=== PATIENT | male | born 1990 | race Caucasian/White ===

== ENCOUNTER 2018-07-10 17:09 | Emergency (ER) | payer SELFPAY ==
[~2018-07-10] VITALS: Ht 170.2 cm; Wt 65.9 kg
[~2018-07-10 17:09] MED LIST: CEPHALEXIN500 MG PO; CLEOCIN150 MG PO; NO MEDS; PENICILLN VK500 MG PO; PREDNISONE20 MG OR; PROAIR HFA IN; PROMETHAZINE25 MG OR; ULTRAM50 MG OR; ULTRAM50 MG PO
[2018-07-10 17:55] LABS: HEMOGLOBIN 14.9 g/dl (14.0-18.0); IMMATURE GRANULOCYTES 0.3 % (0.0-5.0); MEAN CELL VOLUME 89.6 fL CALC (80.0-100.0); MEAN CORPUSCULAR HGB 31.8 pG CALC (26.0-32.0); MEAN CORPUSCULAR HGB CONC 35.5 g/L CALC (32.0-36.0); NEUT# 6.95 thou/uL (1.82-7.42); RED BLOOD COUNT 4.69 mill/uL (4.70-6.10); RED CELL DISTRI WIDTH 12.1 % (11.5-15.5)
[2018-07-10 18:07] LABS: ALBUMIN 4.9 g/dL (3.2-5.0); ALKALINE PHOSPHATASE 65 u/l (38-126); ANION GAP 16 (6-22 (CALC)); BILIRUBIN, TOTAL 0.8 mg/dL (0.0-1.4); BUN 16 mg/dL (9-20); BUN/CREATININE RATIO 16 (12-20 (CALC)); CARBON DIOXIDE 26 mmol/l (22-30); CHLORIDE 103 mmol/l (95-108); GFR > 60 ML/MIN (>=60 (CALC)); GFR FOR AFR.AMER. > 60 ML/MIN (>=60 (CALC)); POTASSIUM 3.9 mmol/l (3.5-5.1); SGOT/AST 34 u/l (17-59); SODIUM 141 mmol/l (137-146); TOTAL PROTEIN 7.9 g/dL (6.3-8.2)
[2018-07-10 18:51] LABS: MYOGLOBIN 66 ng/mL (0 - 121)
[2018-07-10 18:58] LABS: URINE BILIRUBIN - DIPSTICK NEGATIVE (NEGATIVE); URINE BLOOD DIPSTICK NEGATIVE (NEGATIVE); URINE CLARITY CLEAR; URINE COLOR YELLOW; URINE GLUCOSE - DIPSTICK NEGATIVE (NEGATIVE); URINE KETONE TRACE mg/dL (NEGATIVE); URINE LEUK ESTERASE NEGATIVE (NEGATIVE); URINE NITRITE - DIPSTICK NEGATIVE (Negative); URINE PROTEIN - DIPSTICK NEGATIVE (NEG-TRACE)
[2018-07-10] MEDS ORDERED: ZOLOFT50 MG PO (19:15)
[2018-07-10 19:27] VITALS: BP 149/97
== END 2018-07-10 19:32 | disposition home or self-care (01) | DRG 880 ==
LOC: ED 17:09
PROVIDERS: Emergency Medicine; Family Medicine
DX: F41.0 Panic disorder [episodic paroxysmal anxiety] (principal); Z87.891 Personal history of nicotine dependence

== ENCOUNTER 2018-11-21 00:43 | Emergency (ER) | payer SELFPAY ==
[~2018-11-21] VITALS: Ht 170.2 cm; Wt 64.0 kg
[~2018-11-21 00:43] MED LIST changes: +ZOLOFT50 MG PO
[2018-11-21 01:17] VITALS: BP 124/88
[2018-11-21] MEDS ORDERED: PERCOCET 5/325M1 TAB PO (01:20)
[2018-11-21] MEDS ORDERED: AMOXICILLIN500 MG PO (01:20)
== END 2018-11-21 01:26 | disposition home or self-care (01) | DRG 159 ==
LOC: ED 00:43
DX: K02.9 Dental caries, unspecified (principal)

== ENCOUNTER 2021-04-19 08:14 | Inpatient (IN) | payer OTHER ==
[~2021-04-19] VITALS: Ht 170.2 cm; Wt 63.6 kg
[~2021-04-19 08:14] MED LIST changes: +AMOXICILLIN500 MG PO; +PERCOCET 5/325M1 TAB PO
--- NOTE | 2021-04-19 08:18 | NUR ---
PT TO ROOM WITH A STEADY GAIT FOR BEDSIDE TRIAGE.
[2021-04-19 08:52] LABS: URINE BLOOD DIPSTICK MODERATE (NEGATIVE); URINE COLOR YELLOW; URINE GLUCOSE - DIPSTICK NEGATIVE (NEGATIVE); URINE KETONE NEGATIVE (NEGATIVE); URINE LEUK ESTERASE NEGATIVE (NEGATIVE); URINE PROTEIN - DIPSTICK 30 mg/dL (NEG-TRACE); URINE SPECIFIC GRAVITY >=1.030; URINE UROBILINOGEN - DIPSTICK 0.2 E.U./dL (0.2)
[2021-04-19 08:54] LABS: HEMATOCRIT 42.8 % (39.0-50.0); HEMOGLOBIN 14.8 g/dl (14.0-18.0); IMMATURE GRANULOCYTES 0.3 % (0.0-5.0); MEAN CELL VOLUME 91.5 fL CALC (80.0-100.0); MEAN CORPUSCULAR HGB 31.6 pG CALC (26.0-32.0); MEAN CORPUSCULAR HGB CONC 34.6 g/dL CAL (32.0-36.0); PLATELET COUNT 210 thou/uL (130-400); RED BLOOD COUNT 4.68 mill/uL (4.70-6.10); RED CELL DISTRI WIDTH 12.1 % (11.5-15.5)
[2021-04-19 09:06] LABS: URINE BILIRUBIN - DIPSTICK SMALL (NEGATIVE)
--- NOTE | 2021-04-19 09:06 | NUR ---
PT RESTING. STABLE ON MONITOR. NO COMPLAINTS VOICED. CALL LIGHT WITHIN REACH.
[2021-04-19 09:07] LABS: URINE NITRITE - DIPSTICK NEGATIVE (Negative)
[2021-04-19 09:09] LABS: ALBUMIN 4.6 g/dL (3.2-5.0); ALKALINE PHOSPHATASE 51 u/l (38-126); AMYLASE 50 u/l (30-110); ANION GAP 18 (6-22 (CALC)); BILIRUBIN, TOTAL 0.7 mg/dL (0.0-1.4); BUN 13 mg/dL (9-20); BUN/CREATININE RATIO 17 (12-20 (CALC)); CARBON DIOXIDE 24 mmol/l (22-30); CHLORIDE 100 mmol/l (95-108); CPK 67 u/l (52-200); CREATININE 0.8 mg/dL (0.7-1.3); ETHYL ALCOHOL 0 mg/dl (0-30); GFR > 60 ML/MIN (>=60 (CALC)); GFR FOR AFR.AMER. > 60 ML/MIN (>=60 (CALC)); LIPASE 52 u/l (23-300); POTASSIUM 3.7 mmol/l (3.5-5.1); SGOT/AST 27 u/l (17-59); SODIUM 137 mmol/l (137-146); TOTAL PROTEIN 7.7 g/dL (6.3-8.2)
[2021-04-19 09:09] LABS: URINE WBC 0-2 WBC/hpf (0-5)
[2021-04-19 09:15] LABS: MANUAL DIFFERENTIAL YES
[2021-04-19 09:17] LABS: BAND 18 % (0-8)
[2021-04-19 09:18] LABS: PLATELET ESTIMATE NORMAL
--- NOTE | 2021-04-19 09:57 | NUR ---
IV MEDS INFUSING WITHOUT DIFFICULTY. STABLE ON MONITOR. NO CONCERNS VOICED.
--- NOTE | 2021-04-19 11:05 | NUR ---
PT RESTING, PENDING ADMISSION. REPORTS PAIN BUT MUCH IMPROVED.
--- NOTE | 2021-04-19 11:51 | NUR ---
RECIEVED REPORT FROM DECEMBER, RN
--- NOTE | 2021-04-19 11:55 | NUR ---
REPORT GIVEN TO POLY CORDOVA ON MEDSUR. PT ADMITTED TO [id number]
--- NOTE | 2021-04-19 12:00 | NUR ---
PT ARRIVED VIA WC ACCOMPANIED BY ED NURSE. PT A&O X4. NO DISTRESS NOTED. STEADY GAIT OBSERVED. PT C/O OF 12/05 IN ABD "CRAMPING" IN NATURE. STATESLAST DIARRHEA EPISODE THIS MORNING 04/19 THAT HAS BEEN ONGOING FOR THE PAST 3 DAYS ACCOMPANIED BY N&V FOR THE PAST 2 DAYS. REPORTS A TOTAL OF 4 VOMITING EPISODES TODAY. DENIES ANY PAST MEDICAL HX, ONLY SURGICAL PROCEDURES WERE 5 TOOTH EXTRACTIONS. REPORTS COMPLETING A COURSE OF ABX THIS PAST THURSDAY FOR HIS "TOOTH". REPORTS OCCASIONAL ALCOHOL CONSUMPTION ALONG WITH VAPING. CLEAR BREATH SOUNDS HEARD UPON AUSCULTATION. ACTIVE BOWEL SOUNDS X4 QUADRANTS. PT EDUCATED ON NPO STATUS. IV FLUIDS INFUSING PER MAR ORDERS, IV HEALTHY AND PATENT. SKIN INTACT. ORIENTED PT TO ROOM. ASSESSMENT COMPLETED. DISCUSSED POC. CALL LIGHT WITHIN REACH.
--- NOTE | 2021-04-19 12:10 | NUR ---
PT RESTING IN SEMI FOWLERS POSITION. RESPIRATIONS ARE EVEN AND UNLABORED ON ROOM AIR. LUNG SOUNDS ARE CLEAR.BOWEL SOUNDS ARE ACTIVE. PT COMPLAINS OF RIGHT ABD PAIN 3/10. PT REFUSES ANY PAIN MEDICATIONS AT THIS TIME. PT REFUSES NAUSEA. #20G RAC INFUSING WITH IVF PER ORDER, SITE REMAINS HEALTHY AND PATENT. SKIN INTACT. PT DENIES OF ANY NEEDS AT THIS TIME. ALL SAFETY PRECAUTIONS ARE IN PLACE WITH CALL LIGHT IN REACH. WILL CONTINUE TO MONITOR.
--- NOTE | 2021-04-19 12:37 | NUR ---
DR TERRELL AT BEDSIDE
--- NOTE | 2021-04-19 13:39 | NUR ---
DR LAGUNA AT BEDSIDE
--- NOTE | 2021-04-19 14:46 | NUR ---
PT RESTING IN SEMI FOWLERS POSITION. PT REMAINS A/O X3. PT STATES MORPHINE HAS HELPED PAIN. IV ANTIBITICS INFUSING WITH EASE, SITE REMAINS HEA;THY AND PATENT. PT DENIES OF ANY ADDITIONAL NEEDS AT THIS TIME. ALL SAFETY PRECAUTIONS ARE IN PLACE WITH CALL LIGHT IN REACH. WILL CONTINUE TO MONITOR.
[2021-04-19 15:15] VITALS: BP 108/67
--- NOTE | 2021-04-19 16:02 | NUR ---
PT RESTING IN SEMI FOWLERS POSITION. RESPIRATIONS ARE EVEN AND UNLABORED WITH NO DISTRESS NOTED. #20G RAC INFUSING WITH IVF PER ORDER, SITE REMAINS HEALTHY AND PATENT. PT DENIES OF ANY PAINS OR DISCOMFORTS AT THIS TIME. ALL SAFETY PRECAUTIONS ARE IN PLACE WITH CALL LIGHT IN REACH. WILL CONTINUE TO MONITOR.
--- NOTE | 2021-04-19 16:13 | NUR ---
GI PANNEL POSITIVE FOR CDIFF. CONTACT PLUS PRECAUTIONS INITIATED. PT EDUCTAED.
--- NOTE | 2021-04-19 17:43 | NUR ---
NOTIFIED OF GI PANEL RESULTS.
[2021-04-19 19:03] VITALS: BP 113/74
--- NOTE | 2021-04-19 20:00 | NUR ---
PHYSICAL ASSESMENT COMPLETE. PT CURRENTLY DENIES PAIN OR DISCOMFORT. SCHEDULED MEDICATIONS AND PRN MEDICATION ADMINISTERED, SEE E-MAR. PT DENIES ANY NEEDS AT THIS TIME. PLAN OF CARE REVIEWED, PT DENIES QUESTIONS, VERBALIZES UNDERSTANDING. ITEMS WITHIN REACH, BED LOCKED IN LOW POSITION W/ BEDRAILS UP X2. CALL PEGEURO WITHIN REACH, AGREES TO CALL PRN.
--- NOTE | 2021-04-20 00:28 | NUR ---
PT MEDICATED FOR NAUSEA, HE REPORTED HAVING JUST TAKEN A LARGE PO ANTIBIOTIC AND HE THINKS THAT MAY HAVE CAUSED THE NAUSEA. I MEDICATED HIM WITH ZOFRAN AND PROVIDED MILK AND SALTINE CRACKERS WITH ADVICE TO TAKE VERY SMALL BITES AND SIPS MAKING SURE HE TOLERATES IT OKAY AND TO NOT CONTINUE TO EAT OR DRINK IF IT MADE IT WORSE. HE VERBALIZED UNDERSTANDING. EMESIS BAG IN HAND AND CALL LIGHT AT SIDE.
--- NOTE | 2021-04-20 01:38 | NUR ---
PT LAYING IN BED WITH EYES CLOSED, APPEARS TO BE SLEEPING, APPEARS COMFORTABLE AND IN NO DISTRESS. RESPIRATIONS REGULAR AND UNLABORED. ITEMS REMAIN WITHIN REACH, CALL PEGUERO REMAINS WITHIN REACH. BED REMAINS LOCKED AND IN LOW POSITION WITH BEDRAILS UP X2. WILL CONTINUE TO MONITOR.
[2021-04-20 04:00] VITALS: BP 102/66
--- NOTE | 2021-04-20 04:00 | NUR ---
PT RESTING IN BED, NO SIGNS OF DISTRESS NOTED, RESP EVEN AND UNLABORED. PT VOICES NO NEEDS OR COMPLAINTS AT THIS TIME. CALL LIGHT IN REACH, CONTINUE TO MONITOR.
[2021-04-20 05:34] LABS: MEAN CELL VOLUME 95.6 fL CALC (80.0-100.0); MEAN CORPUSCULAR HGB 32.2 pG CALC (26.0-32.0); MEAN CORPUSCULAR HGB CONC 33.7 g/dL CAL (32.0-36.0); RED BLOOD COUNT 3.63 mill/uL (4.70-6.10); RED CELL DISTRI WIDTH 12.6 % (11.5-15.5)
[2021-04-20 05:39] LABS: HEMATOCRIT 34.7 % (39.0-50.0); HEMOGLOBIN 11.7 g/dl (14.0-18.0)
[2021-04-20 05:53] LABS: ANION GAP 12 (6-22 (CALC)); BUN 10 mg/dL (9-20); BUN/CREATININE RATIO 11 (12-20 (CALC)); CARBON DIOXIDE 24 mmol/l (22-30); CHLORIDE 105 mmol/l (95-108); CREATININE 0.9 mg/dL (0.7-1.3); GFR > 60 ML/MIN (>=60 (CALC)); GFR FOR AFR.AMER. > 60 ML/MIN (>=60 (CALC)); POTASSIUM 3.9 mmol/l (3.5-5.1); SODIUM 136 mmol/l (137-146)
--- NOTE | 2021-04-20 08:50 | NUR ---
ASSESSMENT DONE. PATIENT IS ALERT AND ORIENT X3. PATIENT DENIES PAIN AT THIS TIME. RESPS EVEN AND UNLABORED. PATIENT STATED HE HAS BEEN HAVING LOOSE BM. PATIENT DENIES ANY OTHER NEEDS AT THIS TIME. CALL LIGHT IN REACH.
[2021-04-20 08:54] VITALS: BP 105/65
--- NOTE | 2021-04-20 12:20 | NUR ---
PATIENT IS RESTING IN BED WITH NO DISTRESS NOTED. PATIENT DENIES PAIN OR NEEDS AT THIS TIME. CALL LIGHT IN REACH.
[2021-04-20 13:59] VITALS: BP 113/67
--- NOTE | 2021-04-20 15:44 | NUR ---
PATIENT IS RESTING IN BED WITH NO DISTRESS NOTED. PATIENT USING HIS CELL PHONE. PATIENT DENIES ANY NEEDS AT THIS TIME. CALL LIGHT IN REACH.
[2021-04-20 18:51] VITALS: BP 99/61
--- NOTE | 2021-04-20 20:00 | NUR ---
PHYSICAL ASSESMENT COMPLETE. PT CURRENTLY DENIES PAIN OR DISCOMFORT. SCHEDULED MEDICATIONS AND PRN MEDICATION ADMINISTERED, SEE E-MAR. PT DENIES ANY NEEDS AT THIS TIME. PLAN OF CARE REVIEWED, PT DENIES QUESTIONS, VERBALIZES UNDERSTANDING. ITEMS WITHIN REACH, BED LOCKED IN LOW POSITION W/ BEDRAILS UP X2. CALL PEGUERO WITHIN REACH, AGREES TO CALL PRN.
--- NOTE | 2021-04-20 20:30 | NUR ---
PT PREPPED IV SITE TO GET A SHOWER. WILL RESUME IV ANTIBIOTICS WHEN HIS NSHOWER IS COMPLETE.
[2021-04-21 04:00] VITALS: BP 102/58
[2021-04-21 05:16] LABS: HEMATOCRIT 33.5 % (39.0-50.0); HEMOGLOBIN 11.3 g/dl (14.0-18.0); MEAN CELL VOLUME 94.9 fL CALC (80.0-100.0); MEAN CORPUSCULAR HGB CONC 33.7 g/dL CAL (32.0-36.0); RED BLOOD COUNT 3.53 mill/uL (4.70-6.10); RED CELL DISTRI WIDTH 12.7 % (11.5-15.5)
[2021-04-21 05:27] LABS: ANION GAP 10 (6-22 (CALC)); BUN 7 mg/dL (9-20); BUN/CREATININE RATIO 9 (12-20 (CALC)); CARBON DIOXIDE 24 mmol/l (22-30); CHLORIDE 107 mmol/l (95-108); CREATININE 0.8 mg/dL (0.7-1.3); GFR > 60 ML/MIN (>=60 (CALC)); GFR FOR AFR.AMER. > 60 ML/MIN (>=60 (CALC)); POTASSIUM 3.9 mmol/l (3.5-5.1); SODIUM 137 mmol/l (137-146)
--- NOTE | 2021-04-21 08:50 | NUR ---
ASSESSMENT DONE. PATIENT IS ALERT AND ORIENT X3. RESPS EVEN AND UNLABORED. PATIENT STATED HE FEELS BETTER TODAY AND HAS HAD LESS BM. PATIENT DENIES PAIN AT THIS TIME. PATIENT DENIES ANY NEEDS AT THIS TIME. CALL LIGHT IN REACH.
[2021-04-21 09:11] VITALS: BP 98/65
[2021-04-21] MEDS ORDERED: VANCOMYCIN HCL125 M1 PO (10:19)
[2021-04-21] MEDS ORDERED: ONDANSETRON4 MG PO (10:20)
--- NOTE | 2021-04-21 12:32 | NUR ---
Discharge instructions given. Patient verbalizes understanding of same. Discharged in stable condition via Wheelchair to Home with staff. All belongings sent with pt.
--- NOTE | 2021-04-24 11:47 | NUR ---
FINAL BLOOD CX SHOWS BACILLUS SPECIES IN 1 OF 4, CONTAMINANT. REPORTED TO DR KRUSE, NO NEW ORDERS RECD.
== END 2021-04-21 12:32 | disposition home or self-care (01) | DRG 372 ==
LOC: ED 08:14 → ED-I 10:00 → ED 10:21 → MS2 10:22
PROVIDERS: ADMIT Hospitalist; ATTEND Internal Medicine
DX: A04.72 Enterocolitis due to Clostridium difficile, not specified as recurrent (principal); E87.2 Acidosis; Z20.822 Contact with and (suspected) exposure to COVID-19
CPT/HCPCS: Q9967